=== PATIENT | male | born 1960 | race Caucasian/White ===

== ENCOUNTER 2020-07-10 16:40 | Emergency (ER) | payer OTHER ==
[~2020-07-10] VITALS: Ht 170.2 cm; Wt 81.7 kg
[2020-07-10 19:24] VITALS: BP 137/84
== END 2020-07-10 19:24 | disposition home or self-care (01) ==
LOC: ER 16:40
DX: K94.23 Gastrostomy malfunction (principal)

== ENCOUNTER 2021-01-11 08:52 | Observation (INO) | payer OTHER ==
[~2021-01-11] VITALS: Ht 152.4 cm; Wt 73.9 kg
[2021-01-11 09:07] VITALS: BP 139/64
[2021-01-11] MEDS ORDERED: LEVETIRACE100 MG/1 M PER TUBE (09:10)
[2021-01-11] MEDS ORDERED: VALPROIC A250 MG/51 PER TUBE (09:10)
--- NOTE | 2021-01-11 18:33 | NUR ---
LATE ENTRY; 1520 PT BROUGHT TO CV HOLDING TO PREPARE PT FOR IR PROCEDURE TO REPLACE GTUBE THAT FELL OUT. UNABLE TO DO PROCEDURE TODAY SO INPATIENT BED ORDERED. 22G IV PLACED RFA. PT INCONTINENT OF URINE, SO BRIEFS AND LINEN CHANGED. 183; REPORT TO PHYLICIA ON FOOR 184; TRANSFER TO ROOM 439 WILL GIVE IV DOSE OF KEPPRA
[2021-01-11 19:27] VITALS: BP 135/64
[2021-01-12 03:29] VITALS: BP 131/64
[2021-01-12] MEDS ORDERED: NEO/POLYMIXIN/DE5 M1 EA. EYE (07:28)
--- NOTE | 2021-01-12 07:35 | NUR ---
ASSUMED PT CARE THIS AM. PT ALERT BUT NONVERBAL. ABLE TO FOLLOW COMMANDS. MOTHER (CAREGIVER) AT BEDSIDE, ABLE TO ANSWER ADMISSION RELATED QUESTIONS. PER MOTHER, PATIENT GETS 6 BOLUS CANS OF JEVITY TOTAL PER DAY PER TUBE, OTHERWISE IS NPO. PATIENT APPEARED TO BE IN NO PAIN. PATIENT REMAINS INCONTINENT. FALL PRECAUTIONS ARE IN PLACE, CALL LIGHT WITHIN REACH.
[2021-01-12 07:47] VITALS: BP 148/69
--- NOTE | 2021-01-12 07:57 | NUR ---
ASSUMED CARE OF PT AT 1925 ON 01/11/21. PT IS ALERT & IS NON VERBAL. PT IS ABLE TO UNDERSTAND COMMANDS GIVEN. IS ABLE TO TURN SELF IN BED. IS INCONT TO B&B. IS HERE FOR OBSERVATION. IR CONSULTED TO REPLACE PEG TUBE. PT HAS BEEN NPO. MOM AT BEDSIDE. SHE IS [place] & HAS [employer]. CONSENTS SIGNED & IN CHART. LABS & VITALS REVIEWED. CALL LIGHT WITHIN REACH. FALL PRECAUTIONS & HOURLY ROUNDING CONTINUED THIS SHIFT. WILL CONTINUE TO MONITOR.
--- NOTE | 2021-01-12 11:19 | NUR ---
ASSESSMENT: CM REVIEWED CHART AND SPOKE WITH PT AND HIS MOTHER CAMMY WHO IS HIS PRIMARY CAREGIVER AT THE BEDSIDE. PER RECORDS PT HAS HX OF CEREBRAL PALSY AND IS ALERT BUT NONVERBAL. PT LIVES IN A HOUSE WITH HIS MOTHER. PTS MOTHER REPORTS HAVING A RAMP TO ENTER THE HOME. SHE STATES ONCE IN THE HOME SHE HAS A WHEELCHAIR FOR PATIENT WELL A HOSPITAL BED FOR HIM. SHE REPORTS THAT [facility] DAY. PTS PEG TUB WAS DISLODGED AND AWAITING TO HAVE IT REPLACED. PTS MOTHER REPORTS PT RECEIVES JEVITY AT HOME BUT UNSURE WHAT COMPANY SUPPLIES IT BUT STATES SHE HAS THEIR CONTACT AT HOME AND HAS A GOOD SUPPLY OF IT CURRENTLY. SHE REPORTS SHE JUST CALLS THEM AND IT IS DELIVERED QUICKLY WHEN NEEDED. PTS MOTHER REPORTS PT HAS BEEN TO [facility] IN THE PAST AND ALSO TO A SNF AND THINKS IT WAS [facility]. CM DISCUSSED ROLE. PTS MOTHER IS HOPEFUL PT IS ABLE TO RETURN HOME WITH NO NEEDS. CM WILL CONTINUE TO FOLLOW TO ASSIST NEEDED.
== END 2021-01-12 16:54 | disposition home or self-care (01) ==
LOC: ER 08:52 → EROBS 17:35 → 4S 18:31
PROVIDERS: ADMIT Radiology Diagnostic Radiology; ATTEND Radiology Diagnostic Radiology
DX: K94.23 Gastrostomy malfunction (principal); G40.909 Epilepsy, unspecified, not intractable, without status epilepticus; G80.9 Cerebral palsy, unspecified; Z79.899 Other long term (current) drug therapy

== ENCOUNTER 2021-06-03 17:47 | Inpatient (IN) | payer OTHER ==
[~2021-06-03] VITALS: Ht 172.7 cm; Wt 83.9 kg
[~2021-06-03 17:47] MED LIST: LEVETIRACE100 MG/1 M PER TUBE; NEO/POLYMIXIN/DE5 M1 EA. EYE; VALPROIC A250 MG/51 PER TUBE
[2021-06-03 18:16] VITALS: BP 143/67
[2021-06-04 08:00] VITALS: BP 147/59
--- NOTE | 2021-06-04 10:34 | NUR ---
1030: PT LEFT ROOM FOR IR AT THIS TIME VIA CART WITH IR PERSONNEL. PT'S MOTHER/CAREGIVER VERBALIZES UNDERSTANDING OF PROCEDURE PLAN.
== END 2021-06-04 14:15 | disposition home or self-care (01) | DRG 328 ==
LOC: ER 17:47 → EROBS 21:33
PROVIDERS: ADMIT Internal Medicine; ATTEND Internal Medicine
PROC: 0DP63UZ Removal of Feeding Device from Stomach, Percutaneous Approach (ICD-10-PCS; principal; 2021-06-04)
PROC: 0DH63UZ Insertion of Feeding Device into Stomach, Percutaneous Approach (ICD-10-PCS; principal; 2021-06-04)
DX: K94.23 Gastrostomy malfunction (principal); R56.9 Unspecified convulsions; Z20.822 Contact with and (suspected) exposure to COVID-19; Z99.3 Dependence on wheelchair; G80.9 Cerebral palsy, unspecified; R07.89 Other chest pain